=== PATIENT | female | born 1935 | race Caucasian/White ===

== ENCOUNTER 2016-10-14 09:15 | Emergency (ER) | payer MEDICARE, BC ==
[2016-10-14 09:45] VITALS: BP 189/104
[2016-10-14] MEDS ORDERED: Sodium Chloride 0.9% 10 ML Syringe FLUSH PRN (10:03)
--- NOTE | 2016-10-14 10:07 | EDM.PDOC ---
ED HPI GENERAL MEDICAL PROBLEM - General Chief Complaint: General Stated Complaint: NOT FEELING WELL/BODY ACHES Time Seen by Provider: 10/14/16 09:54 Source of Information: Reports: Patient, RN Notes Reviewed History Limitations: Reports: No Limitations - History of Present Illness INITIAL COMMENTS - FREE TEXT/NARRATIVE: 81-year-old female presents emergency department day complaint of diarrhea, she' s been ill for the last 3 days loose stools every hour recent travel to the [facility] she is the only one that is ill new medication was clindamycin taken 2 days prior to the initiation of the diarrhea she denies any fever she has had blood in her stool which started yesterday denies fevers feels dehydrated Right Leg Pain Score (Numeric/FACES): 6 - Related Data Allergies Allergy/AdvReac Type Severity Reaction Status Date / Time gatifloxacin [From Zymar] Allergy Redness Verified 12/08/15 13:14 Penicillins Allergy Hives Verified 12/08/15 13:14 Home Meds: Home Meds Aspirin [Low Dose Aspirin EC] 1 tab PO ASDIRECTED 11/18/14 [History] Carvedilol 12.5 mg PO BID 11/18/14 [History] Cholecalciferol (Vitamin D3) [Vitamin D3] 1,000 unit PO BID 11/18/14 [History] Levothyroxine [Synthroid] 114 mcg PO ACBREAKFAST 11/18/14 [History] Melatonin 3 mg PO BEDTIME 11/18/14 [History] L.acidoph,Paracasei, B.lactis [Probiotic] 1 cap PO DAILY 10/14/16 [History] Past Medical History HEENT History: Reports: Cataract, Impaired Vision Cardiovascular History: Reports: High Cholesterol, Hypertension Gastrointestinal History: Reports: Diverticulosis 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: Musculoskeletal History: Reports: Fracture, Osteoarthritis Endocrine/Metabolic History: Reports: Hypothyroidism Oncologic (Cancer) History: Reports: Breast, Thyroid - Infectious Disease History Infectious Disease History: Reports: Chicken Pox, Measles, Mumps - Past Surgical History HEENT Surgical History: Reports: Cataract Surgery GI Surgical History: Reports: Cholecystectomy, Colonoscopy, Hernia Repair/Other Endocrine Surgical History: Reports: Parathyroidectomy Musculoskeletal Surgical History: Reports: Knee Replacement Oncologic Surgical History: Reports: Lumpectomy Social & Family History - Tobacco Use Smoking Status *Q: Never Smoker Second Hand Smoke Exposure: No - Caffeine Use Caffeine Use: Reports: Tea - Recreational Drug Use Recreational Drug Use: No ED ROS GENERAL - Review of Systems Review Of Systems: See Below Constitutional: Denies: Fever, Chills HEENT: Reports: No Symptoms Respiratory: Reports: No Symptoms Cardiovascular: Reports: No Symptoms GI/Abdominal: Reports: Abdominal Pain (Cramping), Bloody Stool, Diarrhea, Flatus. Denies: Nausea, Vomiting : Reports: No Symptoms Musculoskeletal: Reports: Muscle Pain (Body aches) Skin: Reports: No Symptoms Neurological: Reports: No Symptoms ED EXAM, GENERAL - Physical Exam Exam: See Below Free Text/Narrative:: General: Female elderly, not in any distress, alert and oriented x3 HEENT: head is atraumatic normocephalic, eyes pupils equal round reactive to light, sclera clear no conjunctivitis appreciated. Ears tympanic membranes clear and trevino landmarks and light reflex are present bilaterally canals are clear. Nose no septal deviation, nares are clear, no blood present. Mouth mucosa is dry and pink no erythema or exudate noted in soft palate, tongue is midline uvula is midline, dentition is intact. Neck: Supple no thyromegaly no tracheal deviation. Nodes: Cervical nodes subclavicular nodes nontender no palpable lymphadenopathy noted. Lungs: clear to auscultation bilaterally with symmetrical respirations, no adventitious noise appreciated. CV: Regular rate and rhythm S1 and S2 appreciated no murmurs rubs or gallops noted. Abdomen: Soft, nontender, no palpable masses or organomegaly appreciated, no distention no guarding bowel sounds are present. Neuro: Cranial nerves II through XII grossly intact Skin: Warm and dry, intact Extremities: No lower extremity edema appreciated, Course - Vital Signs Last Recorded V/S: Last Vital Signs Temp 97.9 F 10/14/16 09:46 Pulse 68 10/14/16 09:46 Resp 16 10/14/16 09:46 BP 189/104 H 10/14/16 09:46 Pulse Ox 94 L 10/14/16 09:46 - Orders/Labs/Meds Orders: Active Orders 24 hr Category Date Time Status Peripheral IV Care [RC] . DIRECTED Care 10/14/16 10:03 Active Lactated Ringers [Ringers, Lactated] 1,000 ml Med 10/14/16 10:15 Active IV ASDIRECTED Sodium Chloride 0.9% [Saline Flush] Med 10/14/16 10:03 Active 10 ml FLUSH ASDIRECTED PRN Peripheral IV Insertion Adult [OM.PC] Urgent Oth 10/14/16 10:03 Ordered Medication Orders Lactated Ringer's (Ringers, Lactated) 1,000 mls @ 500 mls/hr IV ASDIRECTED LOVE Last Admin: 10/14/16 10:18 Dose: 500 mls/hr Sodium Chloride (Saline Flush) 10 ml FLUSH ASDIRECTED PRN PRN Reason: Keep Vein Open Last Admin: 10/14/16 10:18 Dose: 10 ml Labs: Laboratory Tests 10/14/16 10/14/16 10/14/16 Range/Units 10:14 10:14 10:14 WBC 6.7 (4.5-11.0) K/uL RBC 4.82 (3.30-5.50) M/uL Hgb 14.0 (12.0-15.0) g/dL Hct 41.8 (36.0-48.0) % MCV 87 (80-98) fL MCH 29 (27-31) pg MCHC 34 (32-36) % Plt Count 226 (150-400) K/uL Neut % (Auto) 54 (36-66) % Lymph % (Auto) 31 (24-44) % [place] % (Auto) 10 H (2-6) % Eos % (Auto) 4 (2-4) % Baso % (Auto) 1 (0-1) % Sodium 142 (140-148) mmol/L Potassium 4.0 (3.6-5.2) mmol/L Chloride 106 (100-108) mmol/L Carbon Dioxide 27 (21-32) mmol/L Anion Gap 9.1 (5.0-14.0) mmol/L BUN 16 (7-18) mg/dL Creatinine 0.7 (0.6-1.0) mg/dL Est Cr Clr Drug Dosing 48.72 mL/min Estimated GFR (MDRD) > 60 (>60) Glucose 119 H (74-106) mg/dL Lactic Acid 1.4 (0.4-2.0) mmol/L Calcium 9.2 (8.5-10.1) mg/dL Total Bilirubin 0.6 (0.2-1.0) mg/dL AST 35 (15-37) U/L ALT 25 (12-78) U/L Alkaline Phosphatase 81 (46-116) U/L Total Protein 7.5 (6.4-8.2) g/dL Albumin 3.6 (3.4-5.0) g/dL Globulin 3.9 H (2.3-3.5) g/dL Albumin/Globulin Ratio 0.9 L (1.2-2.2) Lipase 146 (73-393) U/L Urine Color Urine Appearance Urine pH (4.5-8.0) Ur Specific [place] (1.008-1.030) Urine Protein (NEGATIVE) mg/dL Urine Glucose (UA) (NEGATIVE) mg/dL Urine Ketones (NEGATIVE) mg/dL Urine Occult Blood (NEGATIVE) Urine Nitrite (NEGATIVE) Urine Bilirubin (NEGATIVE) Urine Urobilinogen (NORMAL) mg/dL Ur Leukocyte Esterase (NEGATIVE) Urine RBC (0-5) Urine WBC (0-5) Ur Epithelial Cells Amorphous Sediment Urine Bacteria Urine Mucus 10/14/16 Range/Units 10:57 WBC (4.5-11.0) K/uL RBC (3.30-5.50) M/uL Hgb (12.0-15.0) g/dL Hct (36.0-48.0) % MCV (80-98) fL MCH (27-31) pg MCHC (32-36) % Plt Count (150-400) K/uL Neut % (Auto) (36-66) % Lymph % (Auto) (24-44) % [place] % (Auto) (2-6) % Eos % (Auto) (2-4) % Baso % (Auto) (0-1) % Sodium (140-148) mmol/L Potassium (3.6-5.2) mmol/L Chloride (100-108) mmol/L Carbon Dioxide (21-32) mmol/L Anion Gap (5.0-14.0) mmol/L BUN (7-18) mg/dL Creatinine (0.6-1.0) mg/dL Est Cr Clr Drug Dosing mL/min Estimated GFR (MDRD) (>60) Glucose (74-106) mg/dL Lactic Acid (0.4-2.0) mmol/L Calcium (8.5-10.1) mg/dL Total Bilirubin (0.2-1.0) mg/dL AST (15-37) U/L ALT (12-78) U/L Alkaline Phosphatase (46-116) U/L Total Protein (6.4-8.2) g/dL Albumin (3.4-5.0) g/dL Globulin (2.3-3.5) g/dL Albumin/Globulin Ratio (1.2-2.2) Lipase (73-393) U/L Urine Color Yellow Urine Appearance Clear Urine pH 7.0 (4.5-8.0) Ur Specific [place] 1.010 (1.008-1.030) Urine Protein Negative (NEGATIVE) mg/dL Urine Glucose (UA) Normal (NEGATIVE) mg/dL Urine Ketones Negative (NEGATIVE) mg/dL Urine Occult Blood Negative (NEGATIVE) Urine Nitrite Negative (NEGATIVE) Urine Bilirubin Negative (NEGATIVE) Urine Urobilinogen Normal (NORMAL) mg/dL Ur Leukocyte Esterase Negative (NEGATIVE) Urine RBC 0-5 (0-5) Urine WBC Not seen (0-5) Ur Epithelial Cells Few Amorphous Sediment Not seen Urine Bacteria Not seen Urine Mucus Not seen Meds: Medications Generic Name Dose Route Start Last Admin Trade Name Freq PRN Reason Stop Dose Admin Lactated Ringer's 1,000 mls @ 500 mls/hr 10/14/16 10:15 10/14/16 10:18 Ringers, Lactated IV 500 mls/hr ASDIRECTED LOVE Administration Sodium Chloride 10 ml 10/14/16 10:03 10/14/16 10:18 Saline Flush FLUSH 10 ml ASDIRECTED PRN Administration Keep Vein Open Departure - Departure Time of Disposition: 12:44 Disposition: Home, Self-Care 01 Condition: Good Clinical Impression: Diarrhea Qualifiers: Diarrhea type: unspecified type Qualified Code(s): R19.7 - Diarrhea, unspecified - Discharge Information Forms: ED Department Discharge Additional Instructions: please use antibiotics and anti-spasmodic medication if your symptoms, Please followup with your primary care provider in 5-7 days if not better, please call return to the emergency department with worsening of symptoms. - My Orders Last 24 Hours: My Active Orders 10/14/16 10:03 Peripheral IV Care [RC] . DIRECTED Sodium Chloride 0.9% [Saline Flush] 10 ml FLUSH ASDIRECTED PRN Peripheral IV Insertion Adult [OM.PC] Urgent 10/14/16 10:15 Lactated Ringers [Ringers, Lactated] 1,000 ml IV ASDIRECTED - Assessment/Plan Last 24 Hours: My Active Orders 10/14/16 10:03 Peripheral IV Care [RC] . DIRECTED Sodium Chloride 0.9% [Saline Flush] 10 ml FLUSH ASDIRECTED PRN Peripheral IV Insertion Adult [OM.PC] Urgent 10/14/16 10:15 Lactated Ringers [Ringers, Lactated] 1,000 ml IV ASDIRECTED Plan: Assessment Acuity = acute Site and laterality = diarrhea with positive blood in the stool Etiology = unclear etiology Manifestations = none Location of injury = Home Lab values = CBC, CMP, urinalysis unremarkable stool culture was screen for WBC positive for blood Plan I did review lab work and stool results with her she feels her diarrhea may be improving however I did write prescriptions for ciprofloxacin 500 mg by mouth twice a day 3 days as well as loperamide to be used as needed she is going to hold off on these prescriptions if her symptoms resolve by themselves she will not use them if they get worse because of the bloody diarrhea she will take the medications. She is going to follow-up with her primary care in the next 5-7 days for reevaluation Patient was in agreement with the plan all questions were answered, they were instructed to return to the emergency department or call for worsening symptoms. This note was dictated using [employer] voice recognition software please call with any questions.
[2016-10-14] MEDS ORDERED: Lactated Ringers 1,000 ML IV SCH (10:15)
== END 2016-10-14 13:08 | disposition home or self-care (01) ==
LOC: JP.ED 09:15
DX: R19.7 Diarrhea, unspecified (principal); I10 Essential (primary) hypertension; E78.00 Pure hypercholesterolemia, unspecified; E89.2 Postprocedural hypoparathyroidism; Z85.3 Personal history of malignant neoplasm of breast; Z85.850 Personal history of malignant neoplasm of thyroid; Z98.49 Cataract extraction status, unspecified eye; Z96.659 Presence of unspecified artificial knee joint; Z98.890 Other specified postprocedural states; Z79.899 Other long term (current) drug therapy; Z79.82 Long term (current) use of aspirin; Z88.0 Allergy status to penicillin; Z88.1 Allergy status to other antibiotic agents
CPT/HCPCS: 36415; 80053; 81001; 82272; 83605; 83690; 85025; 89055; 96360; 96361; 99284; J7050; J7120

== ENCOUNTER 2020-10-17 11:07 | Emergency (ER) | payer MEDICARE, BC ==
[2020-10-17 12:01] VITALS: BP 140/58; PULSE 62
--- NOTE | 2020-10-17 13:27 | EDM.PDOC ---
ED HPI GENERAL MEDICAL PROBLEM - General Chief Complaint: Gastrointestinal Problem Stated Complaint: POSSIBLE SINUS Time Seen by Provider: 10/17/20 12:50 Source of Information: Reports: Patient History Limitations: Reports: No Limitations - History of Present Illness INITIAL COMMENTS - FREE TEXT/NARRATIVE: 85-year-old female with chronic sinus problems, chronic GI issues, and was diagnosed with a sinus infection in the left maxillary sinus 3 weeks ago. She was on sinus washes with antibiotics but then left the state a week and a half ago and was unable to bring it with because she could not take it on the plane. When she returned she restarted the treatment but she does not feel she is improving, she still has a lot of drainage and now she is developing some abdominal upset which she has had in the past. No fevers or chills, no nausea or vomiting Onset: Gradual Duration: Week(s): (Symptoms have been ongoing and waxing and waning for weeks) - Related Data Allergies Allergy/AdvReac Type Severity Reaction Status Date / Time gatifloxacin [From Zymar] Allergy Redness Verified 10/17/20 12:48 Penicillins Allergy Hives Verified 10/17/20 12:48 Home Meds: Home Meds Aspirin [Low Dose Aspirin EC] 1 tab PO ASDIRECTED 11/18/14 [History] Cholecalciferol (Vitamin D3) [Vitamin D3] 1,000 unit PO BID 11/18/14 [History] Levothyroxine [Synthroid] 100 mcg PO ACBREAKFAST 11/18/14 [History] Melatonin 3 mg PO BEDTIME 11/18/14 [History] carvediloL [Carvedilol] 12.5 mg PO BID 11/18/14 [History] Acetaminophen [Tylenol] 650 mg PO Q6HR PRN 06/18/19 [History] Albuterol Sulfate [Proair Hfa] 2 puff IH Q4HR PRN 06/18/19 [History] Fexofenadine [Patty] 180 mg PO ASDIRECTED 06/18/19 [History] Fluticasone Propionate [Flonase] 1 spray NASBOTH DAILY 06/18/19 [History] Hydrochlorothiazide/Lisinopril [Lisinopril-HCTZ 10-12.5 MG] 1 tab PO DAILY 06/18/19 [History] Lutein/Min/Vit C/Vit E Acetate [Ocuvite Lutein] 1 cap PO DAILY 06/18/19 [History] Pyridoxine HCl (Vitamin B6) [Vitamin B-6] 100 mg PO DAILY 06/18/19 [History] Albuterol [Ventolin HFA] 1 puff IH BID 10/17/20 [History] Amiodarone HCl [Pacerone] 1 tab PO DAILY 10/17/20 [History] Apixaban [Eliquis] 1 tab PO BID 10/17/20 [History] amLODIPine [Norvasc] 5 mg PO DAILY 10/17/20 [History] Past Medical History HEENT History: Reports: Cataract, Impaired Vision Cardiovascular History: Reports: Afib, High Cholesterol, Hypertension Respiratory History: Reports: Asthma Gastrointestinal History: Reports: Chronic Constipation, Diverticulosis Genitourinary History: Reports: UTI, Recurrent 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: Musculoskeletal History: Reports: Fracture, Osteoarthritis Endocrine/Metabolic History: Reports: Hypothyroidism, Obesity/BMI 30+ Hematologic History: Reports: Anticoagulation Therapy Oncologic (Cancer) History: Reports: Breast, Thyroid - Infectious Disease History Infectious Disease History: Reports: Chicken Pox, Measles, Mumps - Past Surgical History Head Surgeries/Procedures: Reports: None HEENT Surgical History: Reports: Cataract Surgery Cardiovascular Surgical History: Reports: None Respiratory Surgical History: Reports: None GI Surgical History: Reports: Cholecystectomy, Colonoscopy, Hernia Repair/Other Female Surgical History: Reports: None Endocrine Surgical History: Reports: Parathyroidectomy Musculoskeletal Surgical History: Reports: Knee Replacement Oncologic Surgical History: Reports: Lumpectomy Dermatological Surgical History: Reports: None Social & Family History - Tobacco Use Tobacco Use Status *Q: Never Tobacco User Second Hand Smoke Exposure: No - Caffeine Use Caffeine Use: Reports: Coffee - Recreational Drug Use Recreational Drug Use: No ED ROS GENERAL - Review of Systems Review Of Systems: See Below Constitutional: Denies: Fever, Chills HEENT: Reports: Rhinitis, Sinus Problem Respiratory: Denies: Shortness of Breath, Cough Cardiovascular: Denies: Chest Pain GI/Abdominal: Reports: Abdominal Pain (Mild abdominal discomfort upper abdomen, no focal pain, appetite is good), Constipation (Had constipation issues and took MiraLAX, that seems to be better), Nausea. Denies: Diarrhea, Vomiting : Reports: No Symptoms Skin: Reports: No Symptoms ED EXAM, GENERAL - Physical Exam Exam: See Below Exam Limited By: No Limitations General Appearance: Alert, No Apparent Distress Eye Exam: Bilateral Eye: Normal Inspection Head: Atraumatic Neck: Supple, Non-Tender Respiratory/Chest: Lungs Clear Cardiovascular: Regular Rate, Rhythm GI/Abdominal: Normal Bowel Sounds, Soft, Tender (Minimally discomfort with palpation across the upper abdomen but no focal rebound or guarding) Neurological: Alert, Oriented Psychiatric: Anxious Skin Exam: Warm, Dry Course - Vital Signs Last Recorded V/S: Last Vital Signs Temp 97.9 F 10/17/20 12:55 Pulse 62 10/17/20 12:55 Resp 16 10/17/20 12:55 BP 140/58 L 10/17/20 12:55 Pulse Ox 94 L 10/17/20 12:55 - Re-Assessments/Exams Free Text/Narrative Re-Assessment/Exam: 10/17/20 13:27 Patient's presenting symptoms have been worked up fairly extensively in the past and have been negative. Last time this happened she responded well to an oral course of antibiotics. She will be given 7 days of cephalexin to take 500 3 times a day, and encouraged to call her doctor in 2 to 3 days if not improving satisfactorily. Departure - Departure Time of Disposition: 13:39 Disposition: Home, Self-Care 01 Clinical Impression: Sinusitis Qualifiers: Sinusitis location: maxillary Chronicity: unspecified Qualified Code(s): J32.0 - Chronic maxillary sinusitis Abdominal pain Qualifiers: Abdominal location: upper abdomen, unspecified Qualified Code(s): R10.10 - Upper abdominal pain, unspecified - Discharge Information Instructions: Sinusitis, Adult, [id number] Referrals: Khang Gonzales Sr, MD [Primary Care Provider] - Forms: ED Department Discharge Care Plan Goals: Continue your current antibiotics and take cephalexin as prescribed. Consider rechecking in 2 to 3 days if not improving satisfactorily, return anytime if worsening or concerns. Sepsis Event Note (ED) - Evaluation Sepsis Screening Result: No Definite Risk - Focused Exam Vital Signs: Vital Signs Temp Pulse Resp BP Pulse Ox 10/17/20 12:55 97.9 F 62 16 140/58 L 94 L 10/17/20 11:59 97.9 F 62 16 140/58 L 94 L
== END 2020-10-17 13:37 | disposition home or self-care (01) ==
LOC: JP.ED 11:07
DX: J32.0 Chronic maxillary sinusitis (principal); R10.10 Upper abdominal pain, unspecified; I48.91 Unspecified atrial fibrillation; I10 Essential (primary) hypertension; J45.909 Unspecified asthma, uncomplicated; M19.90 Unspecified osteoarthritis, unspecified site; E03.9 Hypothyroidism, unspecified; E66.9 Obesity, unspecified; Z68.33 Body mass index [BMI] 33.0-33.9, adult; Z88.0 Allergy status to penicillin; Z88.8 Allergy status to other drugs, medicaments and biological substances; Z79.82 Long term (current) use of aspirin; Z79.899 Other long term (current) drug therapy
CPT/HCPCS: 99283

== ENCOUNTER 2021-09-23 10:07 | Emergency (ER) | payer MEDICARE, BC ==
[2021-09-23] MEDS ORDERED: Sodium Chloride 0.9% 10 ML Syringe FLUSH PRN (10:38)
[2021-09-23] MEDS ORDERED: Lactated Ringers 1,000 ML IV SCH (10:45)
[2021-09-23 11:12] LABS: ESTIMATED GFR 59 (>60)
[2021-09-23 11:34] VITALS: BP 155/100; PULSE 89
[2021-09-23 12:26] LABS: CORONAVIRUS COVID-19 NAA NEGATIVE (NEGATIVE)
[2021-09-23] MEDS ORDERED: Loperamide 2 MG Cap PO ONE (12:58)
== END 2021-09-23 13:23 | disposition home or self-care (01) ==
LOC: JP.ED 10:07
DX: R19.7 Diarrhea, unspecified (principal); I48.91 Unspecified atrial fibrillation; E78.00 Pure hypercholesterolemia, unspecified; I10 Essential (primary) hypertension; E03.9 Hypothyroidism, unspecified; E66.9 Obesity, unspecified; Z68.30 Body mass index [BMI] 30.0-30.9, adult; Z88.0 Allergy status to penicillin; Z88.1 Allergy status to other antibiotic agents; Z79.82 Long term (current) use of aspirin; Z79.899 Other long term (current) drug therapy; Z79.01 Long term (current) use of anticoagulants; Z20.822 Contact with and (suspected) exposure to COVID-19
CPT/HCPCS: 0241U; 36415; 80053; 81001; 83605; 85025; 87046; 87899; 89055; 96360; 96361; 99284; A9270; J3490; J7120; 99283